=== PATIENT | female | born 1995 | race Caucasian/White ===

== ENCOUNTER 2019-05-22 08:42 | Emergency (ER) | payer BC ==
[~2019-05-22] VITALS: Ht 167.6 cm; Wt 59.0 kg
[2019-05-22] MEDS ORDERED: MEDROLPACK PO (11:14)
[2019-05-22] MEDS ORDERED: ZYRTEC10 M3 PO (11:14)
== END 2019-05-22 15:13 | disposition home or self-care (01) ==
LOC: ER 08:42
DX: T78.49XA Other allergy, initial encounter (principal); R21 Rash and other nonspecific skin eruption; X58.XXXA Exposure to other specified factors, initial encounter